=== PATIENT | female | born 1965 | race Asian ===

== ENCOUNTER → 2016-10-17 | Outpatient (CLI) | payer BC, MEDICAID ==
--- NOTE | ~2016-10-17 | CR7 ---
[facility] A Service of [facility] & [facility] RADIOLOGY TEXT RESULTS PATIENT: DAVIE GARCIA LOCATION: [facility] : [birth year] UNIT #: [id number] AGE: [address]: Dayanara Cabrera APRN SEX: F ORDER DR: [id number] [facility] [address] [place], [place] [address] [id number] O MR#: [id number] Acc #: [id number] NAME: DAVIE GARCIA : 1965 SEX: F STUDY DATE/TIME: 10/17/2016 16:27 UNIT: [facility] ROOM: STUDY DESCRIPTION: CR Abdomen Single AP View Attending Physician: Dayanara Cabrera Aprn Referring Physician: Dayanara Cabrera Aprn Ordering Physician: Dayanara Cabrera Aprn Primary Care Physician: Regine Stockton M.D. MEDICAL IMAGING REPORT This report is preliminary unless electronic signature is present EXAM Single view of the abdomen 10/17/2016 HISTORY Urinary urgency and frequency for 1 year. FINDINGS AP, supine view of the abdomen shows normal bowel gas pattern. No abnormal masses or calculi are seen. The osseous structures appear normal. No soft tissue abnormality is seen. IMPRESSION Normal KUB. Dictated by... Casey Gupta M.D. THIS IS AN ELECTRONICALLY VERIFIED REPORT Casey Gupta M.D. at 10/18/2016 8:08 AM KRT/pcl TD: 10/17/2016 22:34 JOB #: [id number] MEDICAL IMAGING REPORT COPY
== END | disposition home or self-care (01) ==
LOC: CRAD 16:11
DX: R35.0 Frequency of micturition (principal); R39.15 Urgency of urination
CPT/HCPCS: 74000

== ENCOUNTER → 2016-10-31 | Outpatient (CLI) | payer BC, MEDICAID ==
--- NOTE | ~2016-10-31 | CR63 ---
[facility] A Service of [facility] & [facility] RADIOLOGY TEXT RESULTS PATIENT: DAVIE GARCIA LOCATION: [facility] : 69 UNIT #: [id number] AGE: [address]: Dayanara Cabrera APRN SEX: F ORDER DR: [id number] [facility] [address] [place], [place] [address] [id number] O MR#: [id number] Acc #: [id number] NAME: DAVIE GARCIA : 1965 SEX: F STUDY DATE/TIME: 10/31/2016 14:54 UNIT: [facility] ROOM: STUDY DESCRIPTION: CR Chest 2 View Attending Physician: Dayanara Cabrera Aprn Referring Physician: Dayanara Cabrera Aprn Ordering Physician: Dayanara Cabrera Aprn Primary Care Physician: Regine Stockton M.D. MEDICAL IMAGING REPORT This report is preliminary unless electronic signature is present EXAM Chest PA and lateral, 10/31/2016 HISTORY Dyspnea, shortness of breath on exertion, sharp pain right side of chest for 2 weeks. FINDINGS PA and lateral examination of the chest upright shows a good expansion of the parenchyma with a normal distribution of the pulmonary vascularity. There is no indication of congestion, effusion, infiltrate, tumor, or nodular density. The pleural reflections and diaphragmatic contours are normal. The cardiac silhouette and mediastinal anatomy is within normal limits. IMPRESSION Normal chest. Dictated by... Casey Gupta M.D. THIS IS AN ELECTRONICALLY VERIFIED REPORT Casey Gupta M.D. at 11/02/2016 9:04 AM MIKEY/consuelo TD: 11/01/2016 03:28 JOB #: [id number] MEDICAL IMAGING REPORT COPY
--- NOTE | ~2016-10-31 | EKG ---
PATIENT: DAVIE GARCIA UNIT #: [id number] Ventricular Rate: 64 BPM Atrial Rate: 64 BPM P-R Interval: 140 ms QRS Duration: 72 ms Q-T Interval: 412 ms QTC Calculation(Bezet): 425 ms P [place]: 58 degrees Calculated R [place]: 97 degrees Calculated T [place]: 51 degrees Diagnosis Line: Normal sinus rhythm Diagnosis Line: Rightward axis Diagnosis Line: Otherwise normal ECG Diagnosis Line: No previous ECGs available Diagnosis Line: Confirmed by JIMBO LOMAS MD ([id number]) on 10/31/2016 Diagnosis Line: 4:17:48 PM INTERPRETING MD: CESILIA CARRASCO
== END | disposition home or self-care (01) ==
LOC: CRAD 14:41
DX: R06.00 Dyspnea, unspecified (principal)
CPT/HCPCS: 71020; 93005

== ENCOUNTER → 2016-11-19 | Outpatient (CLI) | payer BC, MEDICAID ==
--- NOTE | ~2016-11-19 | BD1 ---
[facility] A Service of [facility] & [facility] RADIOLOGY TEXT RESULTS PATIENT: DAVIE GARCIA LOCATION: [facility] : 69 UNIT #: [id number] AGE: [address]: ALONSO HERNANDEZ SEX: F ORDER DR: [id number] [facility] [address] [place], [place] [address] [id number] O MR#: [id number] Acc #: [id number] NAME: DAVIE GARCIA : 1965 SEX: F STUDY DATE/TIME: 11/19/2016 11:25 UNIT: [facility] ROOM: STUDY DESCRIPTION: BD Dexa Bone Dens 1+ Site Attending Physician: Carlos Phelan Referring Physician: Regine Stockton M.D. Ordering Physician: Carlos Phelan Primary Care Physician: Regine Stockton M.D. MEDICAL IMAGING REPORT This report is preliminary unless electronic signature is present EXAM DXA scan 11/19/2016 HISTORY Status post menopause with no hormone replacement therapy. Osteopenia. Hysterectomy at age 49 with removal of both ovaries. FINDINGS Bone mineral density in the lumbar spine from L1-L4 is 0.754 g/cm2 which is 2.7 standard deviations below the mean when compared to the young adult reference population which is characteristic of osteoporosis. This is 2 standard deviations below the mean when compared to the age-matched population. Bone mineral density in the left femoral neck was 0.563 g/cm2 which is 2.6 standard deviations below the mean when compared to the young adult reference population which is characteristic of osteoporosis. This is 1.9 standard deviations below the mean when compared to the age-matched population. IMPRESSION Bone mineral density in the lumbar spine and left hip characteristic of osteoporosis. Dictated by... Casey Gupta M.D. THIS IS AN ELECTRONICALLY VERIFIED REPORT Casey Gupta M.D. at 11/20/2016 7:46 AM MIKEY/eldon TD: 11/19/2016 14:25 JOB #: [id number] MEDICAL IMAGING REPORT [facility] A Service of [facility] & [facility] RADIOLOGY TEXT RESULTS PATIENT: DAVIE GARCIA LOCATION: [facility] : 69 UNIT #: [id number] AGE: [address]: ALONSO HERNANDEZ SEX: F ORDER DR: Page 1 of 1 COPY
--- NOTE | ~2016-11-19 | MY11 ---
[facility] A Service of [facility] RADIOLOGY TEXT RESULTS PATIENT: DAVIE GARCIA LOCATION: [facility] : 69 UNIT #: [id number] AGE: [address]: ALONSO HERNANDEZ SEX: F ORDER DR: [id number] [facility] [address] [place], [place] [address] [id number] O MR#: [id number] Acc #: [id number] NAME: DAVIE GARCIA : 1965 SEX: F STUDY DATE/TIME: 11/19/2016 11:36 UNIT: [facility] ROOM: STUDY DESCRIPTION: MY Mammogram Screening Dig [place] Attending Physician: Carlos Phelan Referring Physician: Regine Stockton M.D. Ordering Physician: Carlos Phelan Primary Care Physician: Regine Stockton M.D. MEDICAL IMAGING REPORT This report is preliminary unless electronic signature is present EXAM Digital screening mammogram 11/19/2016. HISTORY 51-year-old woman. No risk elevation. Annual screen. COMPARISON 06/02/2015. FINDINGS Digital imaging of each breast was completed utilizing screening protocol. Review includes FDA-approved CAD device. Breast parenchyma remains extremely dense bilaterally. There is a small oval subareolar nodule left breast which contains several calcifications. This has benign characteristics and is unchanged from 2015. I see no suspicious mass characteristics and no interval occurring microcalcifications. There is no architectural deformity. IMPRESSION Stable benign mammogram. Stable dense breast parenchyma. Annual screening recommended. Patients over the age of 40 are entered into a reminder system with target due date for the next mammogram. A result letter will also be sent to the patient. BIRADS: 2 Benign finding. Dictated by... Jaxson Sal M.D. THIS IS AN ELECTRONICALLY VERIFIED REPORT Jaxson Sal M.D. at 11/19/2016 2:21 PM BRIAN/eldon [facility] A Service of [facility] RADIOLOGY TEXT RESULTS PATIENT: DAVIE GARCIA LOCATION: [facility] : 69 UNIT #: [id number] AGE: [address]: ALONSO HERNANDEZ SEX: F ORDER DR: TD: 11/19/2016 13:50 JOB #: [id number] MEDICAL IMAGING REPORT Page 1 of 1 COPY
== END | disposition home or self-care (01) ==
LOC: CWCC 11:03
DX: Z13.820 Encounter for screening for osteoporosis (principal); Z12.31 Encounter for screening mammogram for malignant neoplasm of breast; Z78.0 Asymptomatic menopausal state; M81.0 Age-related osteoporosis without current pathological fracture
CPT/HCPCS: 77080; G0202